=== PATIENT | female | born 1940 | race Caucasian/White ===

== ENCOUNTER 2021-06-12 14:51 | Emergency (ER) | payer MEDICARE, MEDICAID ==
[~2021-06-12] VITALS: Ht 149.9 cm; Wt 81.0 kg
--- NOTE | 2021-06-12 16:05 | NUR ---
Patient assisted to restroom in wheelchair.
[2021-06-12 16:26] LABS: CLARITY,URINE CLOUDY (Clear); COLOR,URINE YELLOW (Yellow); GLUCOSE, URINE NEGATIVE (Neg); KETONES,URINE NEGATIVE (Neg); LEUKOCYTE ESTERASE ,URINE LARGE (Neg); NITRITES, URINE NEGATIVE (Neg); OCCULT BLOOD,URINE MODERATE (Neg); PROTEIN,URINE 30 mg/dl (Neg); UROBILINOGEN,URINE 0.2 E.U/dL (0.2-1.0)
[2021-06-12 16:27] LABS: UA COLLECTION TYPE CLN CATCH MIDSTREAM
[2021-06-12 16:42] LABS: WBC CLUMPS,URINE FEW /HPF (NEGATIVE)
[2021-06-12 16:43] LABS: TRANSITIONAL EPI CELLS,URINE FEW /HPF; WBC,URINE TNTC /HPF (0-4)
[2021-06-12 16:44] LABS: BACTERIA,URINE 3+ /HPF (Neg); RENAL CELLS, URINE FEW /HPF; SQUAMOUS EPITHELIAL CELL,UR MODERATE /LPF (FEW)
[2021-06-12] MEDS ORDERED: nystatin 15 GM powder TP STA (19:23)
[2021-06-12] MEDS ORDERED: cephalexin 500mg capsule PO ONE (19:25)
[2021-06-12] MEDS ORDERED: CEPH-585 PO (19:38)
[2021-06-12 20:17] VITALS: BP 139/55
== END 2021-06-12 20:21 | disposition home or self-care (01) ==
LOC: ER 14:52
DX: R21 Rash and other nonspecific skin eruption (principal); N39.0 Urinary tract infection, site not specified; R07.81 Pleurodynia; Z88.8 Allergy status to other drugs, medicaments and biological substances; Z79.2 Long term (current) use of antibiotics; Z59.00 Homelessness unspecified
CPT/HCPCS: 71046; 81001; 87077; 87088; 87186; 99284

== ENCOUNTER 2021-07-30 16:53 | Emergency (ER) | payer MEDICARE, MEDICAID ==
[~2021-07-30] VITALS: Ht 147.3 cm; Wt 81.5 kg
[~2021-07-30 16:53] MED LIST: CEPH-585 PO
[2021-07-30 17:51] VITALS: BP 172/65
[2021-07-30] MEDS ORDERED: ibuprofen 200mg tablet PO ONE (18:30)
[2021-07-30] MEDS ORDERED: IBUP-1985 PO (18:30)
== END 2021-07-30 18:54 | disposition home or self-care (01) ==
LOC: ER 16:54
DX: M54.50 Low back pain, unspecified (principal); G89.29 Other chronic pain; R60.0 Localized edema; Z59.00 Homelessness unspecified; Z88.8 Allergy status to other drugs, medicaments and biological substances; Z79.2 Long term (current) use of antibiotics
CPT/HCPCS: 99282

== ENCOUNTER 2022-11-01 11:37 | Emergency (ER) | payer MEDICARE, MEDICAID ==
[~2022-11-01] VITALS: Ht 149.9 cm; Wt 80.0 kg
[~2022-11-01 11:37] MED LIST changes: -CEPH-585 PO; +IBUP-1985 PO
[2022-11-01 11:46] VITALS: BP 195/77; PULSE 60; RESP 18; TEMP 97; O2SAT 100
[2022-11-02] MEDS ORDERED: LOSA25TA41 PO (11:46)
[2022-11-02] MEDS ORDERED: METF-900 PO (11:46)
[2022-11-02] MEDS ORDERED: ATEN-236 PO (11:46)
== END 2022-11-01 14:26 | disposition left against medical advice (07) ==
LOC: ER 11:38
DX: M54.59 Other low back pain (principal); Z53.21 Procedure and treatment not carried out due to patient leaving prior to being seen by health care provider
CPT/HCPCS: 93005; 99281

== ENCOUNTER 2023-03-03 16:33 | Inpatient (IN) | payer MEDICARE, MEDICAID ==
[~2023-03-03] VITALS: Ht 153.7 cm; Wt 76.0 kg
[~2023-03-03 16:33] MED LIST changes: +ATEN-236 PO; -IBUP-1985 PO; +LOSA25TA41 PO; +METF-900 PO
[2023-03-03] MEDS ORDERED: CefTRIAXone 2gm/D5W 50ml BAG 50 ML IV ONE (17:45)
[2023-03-03 18:51] LABS: BASOPHILS % (AUTO) 0.3 % (0-1); EOSINOPHILS % (AUTO) 0.1 % (0-6); HEMATOCRIT 42.8 % (35.0-45.0); HEMOGLOBIN 14.7 g/dl (12.0-16.0); LYMPHOCYTES # (AUTO) 0.7 X10'3 (1.1-4.8); LYMPHOCYTES % (AUTO) 7.9 % (21-51); MEAN CORPUSCULAR HEMOGLOBIN 31.4 PG (27.0-31.0); MEAN CORPUSCULAR HGB CONC 34.2 g/dL (33.0-36.5); MEAN CORPUSCULAR VOLUME 91.8 FL (78-98); MEAN PLATELET VOLUME 8.5 FL (7.4-10.4); MONOCYTES # (AUTO) 0.3 X10'3 (0-0.9); MONOCYTES % (AUTO) 3.7 % (2-12); NEUTROPHILS # (AUTO) 7.4 X10'3 (1.8-7.7); PLATELET COUNT 273 X10'3 (140-440); RED BLOOD COUNT 4.67 X10'6 (4.20-5.60); WHITE BLOOD COUNT 8.5 X10'3 (4.5-11.0)
[2023-03-03 19:03] LABS: ALANINE AMINOTRANSFERASE 21 U/L (12-78); ALBUMIN 2.4 G/DL (3.4-5.0); ALBUMIN/GLOBULIN RATIO 0.4 (1.1-1.5); ALKALINE PHOSPHATASE 68 IU/L (46-116); ANION GAP 13 (8-16); ASPARTATE AMINO TRANSFERASE 30 U/L (10-37); BILIRUBIN,TOTAL 0.7 MG/DL (0.1-1.0); BLOOD UREA NITROGEN 54 MG/DL (7-18); BUN/CREATININE RATIO 39.1 (10.0-20.0); CALCIUM 9.8 MG/DL (8.5-10.1); CHLORIDE 104 MMOL/L (99-107); CREATININE 1.38 MG/DL (0.40-0.90); GLUCOSE 146 MG/DL (70-104); SODIUM 140 MMOL/L (135-145); TOTAL CARBON DIOXIDE 22.6 MMOL/L (24-32); eCRCL 24 ML/MIN; eGFR 37 ML/MIN
[2023-03-03] MEDS ORDERED: LORazepam 2 mg/ml vial IV ONE (19:05)
[2023-03-03 19:09] LABS: MAGNESIUM 2.5 MG/DL (1.5-2.4)
[2023-03-03 20:21] LABS: BILIRUBIN,URINE MODERATE (Neg); CLARITY,URINE TURBID (Clear); COLOR,URINE AMBER (Yellow); GLUCOSE, URINE NEGATIVE (Neg); KETONES,URINE 15 mg/dl (Neg); LEUKOCYTE ESTERASE ,URINE MODERATE (Neg); NITRITES, URINE NEGATIVE (Neg); OCCULT BLOOD,URINE TRACE-INTACT (Neg); PROTEIN,URINE 30 mg/dl (Neg)
[2023-03-03 20:27] LABS: UA COLLECTION TYPE FOLEY CATH
[2023-03-03 20:29] LABS: COARSE GRANULAR CAST >30 /LPF (NEGATIVE); SQUAMOUS EPITHELIAL CELL,UR MANY /LPF (FEW)
[2023-03-03 20:30] LABS: WBC,URINE 50-100 /HPF (0-4)
[2023-03-03 20:36] LABS: AMORPHOUS URATES 3+; BACTERIA,URINE 3+ /HPF (Neg); WBC CASTS 0-3 /LPF (NEGATIVE); WBC CLUMPS,URINE FEW /HPF (NEGATIVE)
[2023-03-03] MEDS ORDERED: magnesium 2GM in 50ml NS 50 ML IV PRN (23:00)
[2023-03-03] MEDS ORDERED: magnesium Cl slow-release 64mg tablet PO PRN (23:00)
[2023-03-03] MEDS ORDERED: magnesium 4gm in 100ml NS 100 ML IV PRN (23:00)
[2023-03-03] MEDS ORDERED: potassium Cl 40MEQ/1/2NS 520ml 520 ML IV PRN (23:00)
[2023-03-03] MEDS ORDERED: acetaminophen 325mg tablet PO PRN (23:00)
[2023-03-03] MEDS ORDERED: ondansetron/PF 4mg/2ml inj IV PRN (23:00)
[2023-03-03] MEDS ORDERED: potassium Cl 20 mEq SR tablet PO PRN (23:00)
[2023-03-03] MEDS: normal saline 1000ml 1,000 ML IV SCH (23:30)
[2023-03-04] MEDS: K and/or MAG REPLACEMENT MC SCH ×2 (07:44→20:00)
[2023-03-04 08:59] LABS: ALBUMIN 2.3 G/DL (3.4-5.0); ANION GAP 11 (8-16); BASOPHILS # (AUTO) 0.1 X10'3 (0-0.2); BASOPHILS % (AUTO) 0.7 % (0-1); BLOOD UREA NITROGEN 47 MG/DL (7-18); BUN/CREATININE RATIO 42.3 (10.0-20.0); CALCIUM 9.5 MG/DL (8.5-10.1); CHLORIDE 108 MMOL/L (99-107); CREATININE 1.11 MG/DL (0.40-0.90); EOSINOPHILS # (AUTO) 0.1 X10'3 (0-0.9); EOSINOPHILS % (AUTO) 1.1 % (0-6); GLUCOSE 115 MG/DL (70-104); HEMATOCRIT 43.6 % (35.0-45.0); HEMOGLOBIN 14.4 g/dl (12.0-16.0); LYMPHOCYTES # (AUTO) 0.9 X10'3 (1.1-4.8); LYMPHOCYTES % (AUTO) 10.1 % (21-51); MAGNESIUM 2.4 MG/DL (1.5-2.4); MEAN CORPUSCULAR HEMOGLOBIN 29.8 PG (27.0-31.0); MEAN CORPUSCULAR VOLUME 90.5 FL (78-98); MEAN PLATELET VOLUME 8.3 FL (7.4-10.4); MONOCYTES # (AUTO) 0.2 X10'3 (0-0.9); MONOCYTES % (AUTO) 2.7 % (2-12); NEUTROPHILS # (AUTO) 7.7 X10'3 (1.8-7.7); NEUTROPHILS % (AUTO) 85.4 % (42-75); PLATELET COUNT 256 X10'3 (140-440); POTASSIUM 3.6 MMOL/L (3.5-5.1); RED BLOOD COUNT 4.82 X10'6 (4.20-5.60); RED CELL DISTRIBUTION WIDTH 13.7 % (11.5-14.5); SODIUM 141 MMOL/L (135-145); TOTAL CARBON DIOXIDE 21.8 MMOL/L (24-32); eCRCL 29 ML/MIN; eGFR 47 ML/MIN
[2023-03-04] MEDS: normal saline 1000ml 1,000 ML IV SCH ×2 (09:00→17:42)
[2023-03-04 14:33] LABS: HEMOGLOBIN A1C 6.1 % (4.5-6.2)
[2023-03-04 14:38] LABS: CHOL/HDL RATIO 5.5 (0.00-4.99); CHOLESTEROL 187 MG/DL (0-200); HDL CHOLESTEROL 34 MG/DL (35-60); LDL CHOLESTEROL 104 MG/DL (50-100); THYROID STIMULATING HORMONE 0.21 ulU/ml (0.34-4.50); TRIGLYCERIDES 153 MG/DL (20-135)
[2023-03-04 20:00] VITALS: BP 144/71; PULSE 87; RESP 14; RESP 15; TEMP 97.8; O2SAT 89; O2SAT 90
[2023-03-04] MEDS: CefTRIAXone/D5W-Rocephin 1gm 50 ML IV SCH (20:01)
[2023-03-04] MEDS: losartan 25mg tablet PO SCH (20:18)
[2023-03-04] MEDS: atenolol 25mg tablet PO SCH (20:18)
[2023-03-04 22:00] VITALS: BP 140/61; PULSE 75; RESP 12; TEMP 98.2; O2SAT 89
[2023-03-05] MEDS: normal saline 1000ml 1,000 ML IV SCH ×2 (05:14→14:24)
[2023-03-05 06:00] VITALS: BP 158/66; PULSE 69; RESP 16; TEMP 97.9; O2SAT 93
[2023-03-05 06:53] LABS: ALBUMIN 2.1 G/DL (3.4-5.0); ANION GAP 11 (8-16); BLOOD UREA NITROGEN 27 MG/DL (7-18); BUN/CREATININE RATIO 29.3 (10.0-20.0); CALCIUM 9.2 MG/DL (8.5-10.1); CHLORIDE 110 MMOL/L (99-107); CREATININE 0.92 MG/DL (0.40-0.90); GLUCOSE 105 MG/DL (70-104); MAGNESIUM 2.1 MG/DL (1.5-2.4); POTASSIUM 3.5 MMOL/L (3.5-5.1); SODIUM 144 MMOL/L (135-145); TOTAL CARBON DIOXIDE 22.6 MMOL/L (24-32); eCRCL 35 ML/MIN; eGFR 59 ML/MIN
[2023-03-05 07:01] LABS: BASOPHILS % (AUTO) 0.4 % (0-1); EOSINOPHILS % (AUTO) 0.3 % (0-6); HEMOGLOBIN 13.7 g/dl (12.0-16.0); LYMPHOCYTES # (AUTO) 0.8 X10'3 (1.1-4.8); LYMPHOCYTES % (AUTO) 9.7 % (21-51); MEAN CORPUSCULAR HEMOGLOBIN 32.6 PG (27.0-31.0); MEAN CORPUSCULAR HGB CONC 34.4 g/dL (33.0-36.5); MEAN CORPUSCULAR VOLUME 94.8 FL (78-98); MEAN PLATELET VOLUME 8.6 FL (7.4-10.4); MONOCYTES # (AUTO) 0.3 X10'3 (0-0.9); MONOCYTES % (AUTO) 3.3 % (2-12); NEUTROPHILS # (AUTO) 7.3 X10'3 (1.8-7.7); NEUTROPHILS % (AUTO) 86.3 % (42-75); PLATELET COUNT 273 X10'3 (140-440); RED BLOOD COUNT 4.22 X10'6 (4.20-5.60); RED CELL DISTRIBUTION WIDTH 13.9 % (11.5-14.5); WHITE BLOOD COUNT 8.5 X10'3 (4.5-11.0)
[2023-03-05 08:00] VITALS: RESP 16; O2SAT 93
[2023-03-05] MEDS: K and/or MAG REPLACEMENT MC SCH ×2 (08:00→20:00)
[2023-03-05] MEDS: losartan 25mg tablet PO SCH ×2 (09:05→20:03)
[2023-03-05] MEDS: atenolol 25mg tablet PO SCH ×2 (09:05→20:03)
[2023-03-05 10:00] VITALS: BP 139/89; PULSE 72; RESP 18; TEMP 98.2; O2SAT 91
[2023-03-05 16:02] VITALS: RESP 18; O2SAT 91
[2023-03-05 18:00] VITALS: BP 145/51; PULSE 65; RESP 17; TEMP 98.2; O2SAT 92
[2023-03-05] MEDS: CefTRIAXone/D5W-Rocephin 1gm 50 ML IV SCH (20:02)
[2023-03-05 22:00] VITALS: BP 135/58; PULSE 67; TEMP 98; O2SAT 90
[2023-03-06] MEDS: normal saline 1000ml 1,000 ML IV SCH (01:00)
[2023-03-06 06:00] VITALS: BP 149/60; PULSE 60; RESP 18; TEMP 99.2; O2SAT 92
[2023-03-06 07:39] LABS: ALBUMIN 1.5 G/DL (3.4-5.0); ANION GAP 11 (8-16); BLOOD UREA NITROGEN 19 MG/DL (7-18); BUN/CREATININE RATIO 21.3 (10.0-20.0); CALCIUM 8.7 MG/DL (8.5-10.1); CHLORIDE 111 MMOL/L (99-107); CREATININE 0.89 MG/DL (0.40-0.90); GLUCOSE 101 MG/DL (70-104); MAGNESIUM 1.9 MG/DL (1.5-2.4); POTASSIUM 3.2 MMOL/L (3.5-5.1); SODIUM 141 MMOL/L (135-145); TOTAL CARBON DIOXIDE 19.4 MMOL/L (24-32); eCRCL 37 ML/MIN; eGFR 61 ML/MIN
[2023-03-06 07:52] LABS: BASOPHILS % (AUTO) 0.5 % (0-1); EOSINOPHILS % (AUTO) 0.3 % (0-6); HEMATOCRIT 34.9 % (35.0-45.0); HEMOGLOBIN 12.1 g/dl (12.0-16.0); LYMPHOCYTES # (AUTO) 0.8 X10'3 (1.1-4.8); LYMPHOCYTES % (AUTO) 12.4 % (21-51); MEAN CORPUSCULAR HEMOGLOBIN 33.3 PG (27.0-31.0); MEAN CORPUSCULAR HGB CONC 34.8 g/dL (33.0-36.5); MEAN CORPUSCULAR VOLUME 95.7 FL (78-98); MEAN PLATELET VOLUME 8.4 FL (7.4-10.4); MONOCYTES # (AUTO) 0.3 X10'3 (0-0.9); MONOCYTES % (AUTO) 4.2 % (2-12); NEUTROPHILS # (AUTO) 5.1 X10'3 (1.8-7.7); NEUTROPHILS % (AUTO) 82.6 % (42-75); PLATELET COUNT 247 X10'3 (140-440); RED BLOOD COUNT 3.65 X10'6 (4.20-5.60); RED CELL DISTRIBUTION WIDTH 13.7 % (11.5-14.5); WHITE BLOOD COUNT 6.2 X10'3 (4.5-11.0)
[2023-03-06 08:00] VITALS: RESP 18; O2SAT 92
[2023-03-06] MEDS: K and/or MAG REPLACEMENT MC SCH (08:34)
[2023-03-06] MEDS: losartan 25mg tablet PO SCH (08:41)
[2023-03-06] MEDS: potassium Cl 20 mEq SR tablet PO PRN ×2 (08:41→14:00)
[2023-03-06] MEDS: atenolol 25mg tablet PO SCH (08:42)
[2023-03-06 10:00] VITALS: BP 147/85; PULSE 65; RESP 16; TEMP 98; O2SAT 91
[2023-03-06] MEDS ORDERED: guaiFENesin ER 600mg tablet PO SCH (20:00)
== END 2023-03-06 14:49 | DRG 682 ==
LOC: ER 16:34 → ED HOLD 22:59 → ORTHO 4S 03-04 16:55
PROVIDERS: ADMIT Internal Medicine; ATTEND Family Medicine
DX: N17.0 Acute kidney failure with tubular necrosis (principal); G93.41 Metabolic encephalopathy; N39.0 Urinary tract infection, site not specified; E86.0 Dehydration; E11.9 Type 2 diabetes mellitus without complications; E78.5 Hyperlipidemia, unspecified; Z20.822 Contact with and (suspected) exposure to COVID-19; I10 Essential (primary) hypertension; Z79.84 Long term (current) use of oral hypoglycemic drugs; Z79.899 Other long term (current) drug therapy
CPT/HCPCS: 36415; 71045; 80048; 80053; 80061; 81001; 82948; 83036; 83605; 83735; 84145; 84443; 84484; 85025; 87040; 87088; 87502; 87503; 87811; 93005; 97161; 97530; 99285; A4353; A4615; A6250; G0378; J0696; J7030

== ENCOUNTER 2023-04-09 12:28 | Emergency (ER) | payer MEDICARE, MEDICAID ==
[~2023-04-09] VITALS: Ht 139.7 cm; Wt 54.1 kg
[~2023-04-09 12:28] MED LIST changes: +ASPI81TA52 PO
[2023-04-09 12:46] VITALS: TEMP 98.4
[2023-04-09 13:07] VITALS: BP 104/57; PULSE 79; RESP 17; O2SAT 98
[2023-04-09] MEDS ORDERED: POLY17PO10 PO (13:41)
[2023-04-09] MEDS: polyethylene glycol 3350 17gm powd pack PO STA (14:18)
[2023-04-09] MEDS: lactulose 20gm/30ml cup PO ONE (14:18)
== END 2023-04-09 14:33 | disposition home or self-care (01) ==
LOC: ER 12:28
DX: K59.00 Constipation, unspecified (principal); E11.9 Type 2 diabetes mellitus without complications; I10 Essential (primary) hypertension; Z87.448 Personal history of other diseases of urinary system; Z88.8 Allergy status to other drugs, medicaments and biological substances; Z79.899 Other long term (current) drug therapy; Z79.1 Long term (current) use of non-steroidal anti-inflammatories (NSAID); Z79.2 Long term (current) use of antibiotics
CPT/HCPCS: 74018; 99284